=== PATIENT | female | born 1980 | race Asian ===

== ENCOUNTER 2018-03-27 21:39 | Emergency (ER) | payer MEDICAID ==
[~2018-03-27] VITALS: Ht 147.3 cm; Wt 63.5 kg
[2018-03-27] MEDS ORDERED: hydrALAZINE HCL 20 MG/ML VL ONE (22:32)
[2018-03-27] MEDS ORDERED: LABETALOL HCL 5 MG/ML ML 20ML VIAL IV ONE (22:44)
[2018-03-27] MEDS ORDERED: LORazepam 2MG/ML-1ML VIAL IV ONE (22:45)
[2018-03-27] MEDS ORDERED: hydrALAZINE HCL 20 MG/ML VL IV ONE (22:45)
[2018-03-27] MEDS ORDERED: SODIUM CHLORIDE 0.9% 1,000 ML IV ONE (22:45)
[2018-03-27] MEDS ORDERED: ALTEPLASE (RECOMBINANT) 100 MG in STERILE WATER 100 ML IV ONE (22:45)
[2018-03-27 22:52] LABS: Hemoglobin 8.3 g/dL (12.2-16.2)
[2018-03-27 22:54] LABS: Hematocrit 29.3 % (36.0-46.0); Mean Corpuscular Hgb Conc. 28.4 g/dL (32.0-36.0); Mean Corpuscular Volume 63.3 fL (80.0-100.0); Platelet Count (auto) 550 10^3/uL (140-450); Red Blood Cells 4.62 10^6/uL (4.0-5.20); Red Cell Distribution Width 20.4 % (11.8-14.3)
[2018-03-27 22:59] LABS: Salicylate < 1.7 mg/dL (2.8-20.0)
[2018-03-27 23:00] LABS: Albumin 3.9 g/dL (3.4-5.0); Anion Gap 20 (5-15); Aspartate Aminotransferase 29 U/L (15-37); BUN/Creatinine Ratio 10.6; Blood Alcohol < 3.0 mg/dL (0-5); Blood Urea Nitrogen 10 mg/dL (7-18); Calcium 9.2 mg/dL (8.5-10.1); Carbon Dioxide 13 mmol/L (21-32); Chloride 106 mmol/L (98-107); GFR African American 87 mL/min; GFR Non-African American 72 mL/min; Glucose 237 mg/dL (74-106); Potassium 3.7 mmol/L (3.5-5.1); Sodium 139 mmol/L (136-145)
[2018-03-27 23:02] LABS: Acetaminophen < 2.0 ug/mL (10-30)
[2018-03-27 23:03] LABS: White Blood Cell 30.5 10^3/uL (4.4-10.8)
[2018-03-27 23:04] LABS: Band Neutrophils % (manual) 0; Basophils % (manual) 0 (0.0-2.0); Blast Cells 0; Eosinophils % (manual) 0 (0-7); Metamyelocytes % 0; Myelocytes % 0; Promyelocytes % 0; Reactive Lymphocytes 0
[2018-03-27 23:10] LABS: Alanine Aminotransferase 41 U/L (13-56); Alkaline Phosphatase 87 U/L (45-117); Bilirubin, Total 0.7 mg/dL (0.2-1.0); Total Protein 9.4 g/dL (6.4-8.2)
[2018-03-27] MEDS ORDERED: ACETAMINOPHEN 650 MG RECT SUPP PR ONE (23:15)
[2018-03-27 23:28] VITALS: BP 111/75
[2018-03-27 23:32] LABS: Lymphocytes % (manual) 19 (10.0-50.0); Monocytes % (manual) 2 (0-12)
[2018-03-27 23:54] LABS: Urine Bacteria NONE SEEN /hpf (None Seen); Urine Blood 3+ /uL (Negative); Urine Hyaline Cast FEW /lpf (0 - 2); Urine Mucus FEW (None Seen); Urine Specific Gravity 1.017 (1.001-1.035); Urine WBC 1 /hpf (0 - 5)
[2018-03-28 00:04] LABS: Alcohol, Urine < 3.0 mg/dL (0-5); Amphetamine Screen, Urine NEGATIVE (NEGATIVE); Barbiturate Scree,Urine NEGATIVE (NEGATIVE); Benzodiazephine Screen, Urine NEGATIVE (NEGATIVE); Cannabinoid Screen, Urine NEGATIVE (NEGATIVE); Cocaine Screen, Urine NEGATIVE (NEGATIVE); Opiate Scree,Urine NEGATIVE (NEGATIVE); Phencyclidine Screen, Urine NEGATIVE (NEGATIVE)
== END 2018-03-27 23:39 | disposition short-term general hospital (02) ==
LOC: EDBD 21:39 → ER 21:51
DX: I63.9 Cerebral infarction, unspecified (principal); E11.9 Type 2 diabetes mellitus without complications; E78.5 Hyperlipidemia, unspecified; I10 Essential (primary) hypertension
CPT/HCPCS: 36415; 70450; 80053; 80307; 80320; 80329; 81001; 81025; 82962; 83605; 83735; 84702; 85007; 85027; 86141; 87040; 93005; 94761; 96361; 96374; 96375; 99285; J0360; J2060; J7030